=== PATIENT | male | born 1960 | race Caucasian/White ===

== ENCOUNTER 2025-06-11 09:03 | Outpatient (REF) | payer BC, SELFPAY ==
[2025-06-11 14:19] LABS: Appearance Urine Turbid; Glucose Urine UA Negative (Negative); PH 5.5 (5.0-9.0); Specific Gravity - Urine 1.025 (1.005-1.025); UMIC TRIGGER UACC YES
[2025-06-11 14:24] LABS: MANUAL DIFF FLAG NO
[2025-06-11 14:26] LABS: UACC Culture Trigger YES
[2025-06-11 14:32] LABS: Hematocrit 49.3 % (42.0-52.0); Hemoglobin 15.8 g/dl (14.0-18.0); Imm Gran Abs Auto 0.04 X10*3/uL (0.00-0.03); Imm Gran Pct Auto 0.6 % (0.0-0.4); Lymphocytes Absolute Auto 1.0 X10*3/uL (1.2-4.9); Mean Corpuscular HGB Conc 32.0 g/dl (31.0-36.0); Mean Corpuscular Hemoglobin 28.1 pg (27.0-33.0); Mean Corpuscular Volume 87.6 fL (80.0-98.0); NRBC Abs Auto 0.000 X10*3/uL (0.0-0.012); NRBC Pct Auto 0.0 /100WBC (0.0-0.2); Platelet Count 240 X10*3/uL (160-400); Red Blood Count 5.63 X10*6/uL (4.60-5.80); White Blood Count 6.8 X10*3/uL (4.8-10.8)
[2025-06-11 14:52] LABS: Alanine Aminotransferase 32 U/L (0-40); Albumin Level 4.9 g/dL (3.5-5.0); Alkaline Phosphatase 81 U/L (39-117); Anion Gap 11 (12-20); Aspartate Amino Transferase 35 U/L (5-37); Blood Urea Nitrogen 18 mg/dL (9-16); Calcium 9.5 mg/dL (8.4-10.2); Carbon Dioxide 28 mmol/L (22-29); Chloride 105 mmol/L (96-108); Cholesterol 274 mg/dL (<200); Estimated Glomerular Filt Rate > 60; HDL Cholesterol 40 mg/dL (>40); Magnesium 2.5 mg/dL (1.6-2.6); Potassium 4.5 mmol/L (3.3-5.1); Sodium 139 mmol/L (135-145); Total Protein 7.5 g/dL (6.5-8.0); Triglycerides 203 mg/dL (<150)
[2025-06-11 15:27] LABS: Folate 7.9 ng/mL (> or = 4.0); Vitamin B12 226 pg/mL (200-900)
[2025-06-12 07:28] LABS: Syphilis Screen Nonreactive (Nonreactive)
[2025-06-12 08:02] LABS: HBS Num1 0.00 mIU/mL (0-7.99); HBsAGNum1 0.59 S/CO (0.00-0.99); HIV Num 1 0.07 S/CO (0.00-0.99); Hepatitis B Surface Antigen Negative (Negative); ~HepC Num1 0.07 S/CO (0.00-0.79); ~Hepatitis B Surface Antibody NONREACTIVE (Nonreactive); ~Hepatitis C Antibody Nonreactive (Nonreactive)
[2025-06-15 18:44] LABS: Vitamin D 25-OH, D2 <4 ng/mL; Vitamin D 25-OH, D3 12 ng/mL; Vitamin D 25-OH, Total 12 ng/mL (30-100)
== END 2025-06-11 09:04 | disposition home or self-care (01) ==
LOC: HO.HKASLDS 09:03
PROVIDERS: PCP Student in an Organized Health Care Education/Training Program; Visit Provider Student in an Organized Health Care Education/Training Program
DX: Z13.9 Encounter for screening, unspecified (principal); E66.811 Obesity, class 1; R03.0 Elevated blood-pressure reading, without diagnosis of hypertension; Z56.6 Other physical and mental strain related to work; I10 Essential (primary) hypertension; T75.4XXA Electrocution, initial encounter; F17.210 Nicotine dependence, cigarettes, uncomplicated; Z87.820 Personal history of traumatic brain injury; Z68.32 Body mass index [BMI] 32.0-32.9, adult
CPT/HCPCS: 36415; 80053; 80061; 81001; 81003; 82306; 82607; 82746; 83036; 83735; 84443; 85025; 86706; 86780; 86803; 87086; 87340; 87389; 96127

== ENCOUNTER 2025-06-11 09:03 | Outpatient (AMB) | payer BC, SELFPAY ==
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
[2025-06-11 09:06] VITALS: BP 156/102; PULSE 71; RESP 16; TEMP 36.5; O2SAT 94; BMI 32.0
== END 2025-06-11 10:02 | disposition home or self-care (01) ==
PROVIDERS: Visit Provider Student in an Organized Health Care Education/Training Program
DX: Z72.0 Tobacco use (principal); E66.811 Obesity, class 1; R03.0 Elevated blood-pressure reading, without diagnosis of hypertension; Z56.6 Other physical and mental strain related to work; Z87.820 Personal history of traumatic brain injury; T75.4XXA Electrocution, initial encounter; I10 Essential (primary) hypertension

== ENCOUNTER 2025-06-30 10:42 | Outpatient (AMB) | payer BC, SELFPAY ==
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
[2025-06-30 10:50] VITALS: BP 158/101; PULSE 69; RESP 16; TEMP 36.6; O2SAT 98; BMI 32.1
--- OUTSIDE RECORDS SUMMARY | 2025-06-30 11:59 | XMS_ITS | Patient Health Record ---
Author Organization [facility] Address [address] [place] [id number] Support Name Relationship Address Phone ATTILA BULLARD Guarantor Unknown [phone] Reason For Referral No Information Medications Medication SIG (Take, Route, Fr equency, Duration) Notes Start Date End Date Status Cialis 5 mg tablet 1 tab(s) orally once a day 03/2015 Active Social History Social History Additional Details Category Social Info Options Details Migrated Social History Migrated Social History Social History(Alcohol:):socially Type: , Frequency: ,Years: , Determination: ;Social History(Drug use:):no ;Social History(Exercise:):no ;Social History(Language Spoken):croatian ;Social History(Tobacco Use/ Smoking:):Are you a: never smoker ; Plan Of Treatment No Information Medical (General) History Medical History History ICD Code sexual dysfiunction
== END 2025-06-30 11:47 | disposition home or self-care (01) ==
LOC: HO.HMCFMS 10:42
PROVIDERS: PCP Student in an Organized Health Care Education/Training Program; Visit Provider Student in an Organized Health Care Education/Training Program
DX: E66.812 Obesity, class 2 (principal); Z56.6 Other physical and mental strain related to work; I10 Essential (primary) hypertension; R79.89 Other specified abnormal findings of blood chemistry; E78.5 Hyperlipidemia, unspecified; Z72.0 Tobacco use; R82.90 Unspecified abnormal findings in urine; R73.03 Prediabetes; G47.33 Obstructive sleep apnea (adult) (pediatric); Z99.89 Dependence on other enabling machines and devices